=== PATIENT | male | born 1955 | race Caucasian/White ===

== ENCOUNTER 2022-02-14 12:43 | Emergency (ER) | payer MEDICARE ==
[2022-02-14 12:51] VITALS: TEMP 98.7
[2022-02-14] MEDS ORDERED: NATURE'S BLEND100 M2 PO (13:26)
[2022-02-14] MEDS ORDERED: FOLIC ACID 11 MG/TA1 PO (13:27)
[2022-02-14] MEDS ORDERED: CELEXA 20MG20 MG/TAB PO (13:27)
[2022-02-14] MEDS ORDERED: FLOMAX 0.40.4 MG/CAP PO (13:27)
[2022-02-14] MEDS ORDERED: PRILOSEC 20MG20 MG PO (13:27)
[2022-02-14 13:38] LABS: BASO # 0.1 K/mm3 (0.0-0.2); BASO % 1.3 % (0.0-2.0); EOS # 0.1 K/mm3 (0.0-0.7); EOS % 1.8 % (0.0-4.0); GRAN # 2.2 K/mm3 (1.4-6.5); GRAN % 57.8 % (42.2-75.2); HEMOGLOBIN 10.6 g/dl (13.5-18.0); LYMPH # 1.1 K/mm3 (1.2-3.4); LYMPH % 28.4 % (20.0-51.0); MEAN CELL VOLUME 99 fl (80.0-100.0); MEAN CORPUSCULAR HEMOGLOBIN 36 pg (27-31); MEAN CORPUSCULAR HGB CONC 36 g/dl (33.0-37.0); MEAN PLATELET VOLUME 9.8 fl (7.4-10.4); MONO # 0.4 K/mm3 (0.1-0.6); MONO % 10.4 % (1.7-9.3); PLATELET COUNT 105 K/mm3 (130-400); RED BLOOD COUNT 2.98 M/mm3 (4.20-5.60); REDCELL DISTRIBUTION WIDTH-CV 15.8 % (11.5-14.5)
[2022-02-14 13:39] LABS: HEMATOCRIT 29.5 % (42.0-52.0)
[2022-02-14 13:52] LABS: ALANINE AMINOTRANSFERASE 23 U/L (0-55); ALBUMIN 2.7 gm/dL (3.4-4.8); ALKALINE PHOSPHATASE 72 U/L (40-150); ANION GAP 11 mmol/L (7-16); AST,SGOT 51 U/L (5-34); BILIRUBIN,TOTAL 8.5 mg/dL (0.2-1.2); BLOOD UREA NITROGEN 6 mg/dL (8-26); CALCIUM 8.5 mg/dL (8.4-10.2); CARBON DIOXIDE 21 mmol/L (23-31); CHLORIDE 102 mmol/L (98-107); CREATININE, serum 0.58 mg/dL (0.72-1.25); GLUCOSE 97 mg/dL (70-99); LIPASE 31 U/L (8-78); POTASSIUM 3.8 mmol/L (3.5-4.5); SODIUM 134 mmol/L (136-145); TOTAL PROTEIN 6.4 gm/dL (6.2-8.1)
[2022-02-14 13:54] LABS: ALCOHOL(ethanol),MEDICAL < 10 mg/dL (0-10)
[2022-02-14 14:01] LABS: TROPONIN-I < 0.010 ng/mL (0.00-0.033)
[2022-02-14 15:03] LABS: COLLECTION METHOD CLEAN CATCH
[2022-02-14 15:23] LABS: MUCOUS Present (NOT PRESENT); PH 5 (5-8); SQUAMOUS EPITHELIAL 0-2 /hpf (0-10); URINE APPEARANCE Hazy (CLEAR/HAZY); URINE BACTERIA None Seen /hpf (NONE SEEN); URINE BILIRUBIN Negative (NEGATIVE); URINE BLOOD Negative (NEGATIVE); URINE CALCIUM OXALATE CRYSTAL Present (NOT PRESENT); URINE COLOR Amber (YELLOW); URINE GLUCOSE 1+ (NEGATIVE); URINE KETONE 1+ (NEGATIVE); URINE LEUKOCYTE ESTERASE Negative (NEGATIVE); URINE NITRATE Negative (NEGATIVE); URINE PROTEIN(semi-quant) 1+ (NEGATIVE); URINE RBC >50 /hpf (0-2); URINE UROBILINOGEN >=4.0 (NEGATIVE)
[2022-02-14 17:00] VITALS: BP 97/73; PULSE 74
== END 2022-02-14 17:00 | disposition home or self-care (01) ==
LOC: COL.ER 12:43
PROVIDERS: Nurse Practitioner Family
DX: R18.8 Other ascites (principal); D64.9 Anemia, unspecified; K74.60 Unspecified cirrhosis of liver; D72.819 Decreased white blood cell count, unspecified; Z20.822 Contact with and (suspected) exposure to COVID-19; Z87.891 Personal history of nicotine dependence; Z28.310 Unvaccinated for COVID-19
CPT/HCPCS: Q9967

== ENCOUNTER 2022-02-21 12:50 | Outpatient (CLI) | payer MEDICARE ==
[~2022-02-21] VITALS: Ht 180.3 cm; Wt 125.6 kg
[~2022-02-21 12:50] MED LIST: CELEXA 20MG20 MG/TAB PO; FLOMAX 0.40.4 MG/CAP PO; FOLIC ACID 11 MG/TA1 PO; NATURE'S BLEND100 M2 PO; PRILOSEC 20MG20 MG PO
[2022-02-21 13:22] VITALS: BP 131/82; PULSE 72; TEMP 97.8
[2022-02-21 15:50] VITALS: BP 92/60; PULSE 64
--- NOTE | 2022-02-21 17:03 | NUR ---
rEPORT TO Sultana Red.
[2022-02-21 17:50] VITALS: BP 93/58; PULSE 66
== END 2022-02-22 13:30 ==
LOC: COL.RAD 12:50
DX: K70.31 Alcoholic cirrhosis of liver with ascites (principal)
CPT/HCPCS: P9047

== ENCOUNTER → 2022-03-30 | Outpatient (CLI) | payer MEDICARE ==
[~2022-03-30] VITALS: Ht 180.3 cm; Wt 113.6 kg
[~2022-03-30] MED LIST changes: +ALDACTONE 100M100 MG PO; +CELEXA40 MG; +LASIX 40MG TABL40 MG PO; +PRILOSEC 20MG20 MG; +PROTONIX 40MG T40 MG PO
[2022-03-30 13:04] VITALS: BP 103/68; PULSE 69; TEMP 98.2
[2022-03-30 14:40] VITALS: BP 97/64; PULSE 76
== END ==
LOC: COL.RAD 12:43
DX: K70.11 Alcoholic hepatitis with ascites (principal); K70.31 Alcoholic cirrhosis of liver with ascites
CPT/HCPCS: 19804

== ENCOUNTER 2022-04-07 10:55 | Day surgery (SDC) | payer MEDICARE ==
[~2022-04-07] VITALS: Ht 180.3 cm; Wt 103.2 kg
[~2022-04-07 10:55] MED LIST changes: -ALDACTONE 100M100 MG PO; -CELEXA40 MG; -LASIX 40MG TABL40 MG PO; -PRILOSEC 20MG20 MG; -PROTONIX 40MG T40 MG PO
[2022-04-07] MEDS ORDERED: PRILOSEC 20MG20 MG (12:18)
[2022-04-07] MEDS ORDERED: FLOMAX 0.40.4 MG/CAP PO (12:19)
[2022-04-07] MEDS ORDERED: PROTONIX 40MG T40 MG PO (12:20)
[2022-04-07] MEDS ORDERED: CELEXA40 MG (12:21)
[2022-04-07 13:50] VITALS: BP 123/77; PULSE 73; TEMP 97.4
--- NOTE | 2022-04-07 13:50 | NUR ---
PATIENT ARRIVES TO ROOM 9 VIA CART. HE IS ALERT AND ORIENTED. THE DOCTOR ORDERED A SOFT DIET SO HE REQUESTED WATER AND APPLESAUCE. FRIEND AT BEDSIDE. VITAL SIGNS WNL. WILL CONTINUE TO MONITOR.
[2022-04-07 14:05] VITALS: BP 120/75; PULSE 72
--- NOTE | 2022-04-07 14:05 | NUR ---
PATIENT IS DOING WELL, NO NAUSEA REPORTED AFTER DRINKING/EATING. VITAL SIGNS WNL. WILL CONTINUE TO MONITOR. WAITING FOR DOCTOR TO SPEAK WITH PATIENT.
[2022-04-07 14:20] VITALS: BP 117/80; PULSE 74
--- NOTE | 2022-04-07 14:20 | NUR ---
PATIENT IS READY FOR DISCHARGE. INSTRUCTIONS REVIEWED WITH HIM AND HIS FRIEND. HE IS TO FOLLOW UP WITH IN 4 WEEKS. LAST SET OF VITALS WNL. WILL DISCHARGE ONCE HE IS DRESSED.
[2022-04-07 16:43] VITALS: BP 103/68; PULSE 72; TEMP 97.7
== END 2022-04-07 14:26 | disposition home or self-care (01) ==
LOC: SDCO 10:55
DX: I85.10 Secondary esophageal varices without bleeding (principal); K70.31 Alcoholic cirrhosis of liver with ascites; K29.30 Chronic superficial gastritis without bleeding; Z87.891 Personal history of nicotine dependence
CPT/HCPCS: J2704; J7030

== ENCOUNTER 2022-04-25 07:08 | Outpatient (CLI) | payer MEDICARE ==
[~2022-04-25] VITALS: Ht 180.3 cm; Wt 114.9 kg
[~2022-04-25 07:08] MED LIST changes: +CELEXA40 MG; +PRILOSEC 20MG20 MG; +PROTONIX 40MG T40 MG PO
[2022-04-25] MEDS ORDERED: ALDACTONE 100M100 MG PO (07:30)
[2022-04-25] MEDS ORDERED: LASIX 40MG TABL40 MG PO (07:30)
[2022-04-25 07:32] VITALS: BP 117/73; PULSE 75; TEMP 98
[2022-04-25 08:03] LABS: CALCIUM 8.7 mg/dL (8.4-10.2); CREATININE, serum 0.75 mg/dL (0.72-1.25); POTASSIUM 4.5 mmol/L (3.5-4.5)
[2022-04-25 09:50] VITALS: BP 85/58; PULSE 75
[2022-04-25 11:00] VITALS: BP 100/69; PULSE 77
[2022-04-25 12:00] VITALS: BP 90/60; PULSE 70
[2022-04-25 13:00] VITALS: BP 98/50; PULSE 75
== END 2022-04-25 13:15 | disposition home or self-care (01) ==
LOC: COL.RAD 07:08
PROVIDERS: Student in an Organized Health Care Education/Training Program
DX: K70.31 Alcoholic cirrhosis of liver with ascites (principal)
CPT/HCPCS: P9047

== ENCOUNTER 2022-05-02 14:41 | Emergency (ER) | payer MEDICARE ==
[~2022-05-02] VITALS: Ht 180.3 cm; Wt 100.5 kg
[~2022-05-02 14:41] MED LIST changes: +ALDACTONE 100M100 MG PO; +LASIX 40MG TABL40 MG PO
[2022-05-02 14:47] VITALS: TEMP 98.5
[2022-05-02] MEDS ORDERED: ENULOSE10 GM/151 PO (15:03)
[2022-05-02 15:31] LABS: BASO # 0.1 K/mm3 (0.0-0.2); BASO % 1.7 % (0.0-2.0); EOS # 0.2 K/mm3 (0.0-0.7); EOS % 3.8 % (0.0-4.0); GRAN # 3.1 K/mm3 (1.4-6.5); GRAN % 59.3 % (42.2-75.2); HEMATOCRIT 31.2 % (42.0-52.0); HEMOGLOBIN 11.5 g/dl (13.5-18.0); LYMPH # 1.2 K/mm3 (1.2-3.4); LYMPH % 23.5 % (20.0-51.0); MEAN CELL VOLUME 105 fl (80.0-100.0); MEAN CORPUSCULAR HEMOGLOBIN 39 pg (27-31); MEAN CORPUSCULAR HGB CONC 37 g/dl (33.0-37.0); MEAN PLATELET VOLUME 8.8 fl (7.4-10.4); MONO # 0.6 K/mm3 (0.1-0.6); MONO % 11.3 % (1.7-9.3); PLATELET COUNT 113 K/mm3 (130-400); RED BLOOD COUNT 2.98 M/mm3 (4.20-5.60); REDCELL DISTRIBUTION WIDTH-CV 14.2 % (11.5-14.5)
[2022-05-02 15:33] LABS: INR 2.1 (0.8-3.0); PROTHROMBIN TIME 23.7 SECONDS (9.7-12.8)
[2022-05-02 15:43] LABS: C-REACTIVE PROTEIN 0.84 mg/dL (0.00-0.50); CALCIUM 8.9 mg/dL (8.4-10.2); CREATININE, serum 0.86 mg/dL (0.72-1.25); POTASSIUM 4.3 mmol/L (3.5-4.5); TOTAL PROTEIN 6.7 gm/dL (6.2-8.1)
[2022-05-02 17:19] LABS: COLLECTION METHOD CLEAN CATCH
[2022-05-02 17:25] LABS: URINE APPEARANCE Clear (CLEAR/HAZY); URINE BLOOD Negative (NEGATIVE); URINE COLOR Yellow (YELLOW); URINE GLUCOSE Negative (NEGATIVE); URINE KETONE Negative (NEGATIVE); URINE NITRATE Negative (NEGATIVE); URINE PROTEIN(semi-quant) Negative (NEGATIVE); URINE UROBILINOGEN 0.2 E.U/dL (0.2-1.0)
[2022-05-02 17:26] LABS: SQUAMOUS EPITHELIAL 0-2 /hpf (0-10); URINE BACTERIA None Seen /hpf (NONE SEEN); URINE RBC 0-2 /hpf (0-2)
[2022-05-02 18:47] VITALS: BP 108/66; PULSE 74
[2022-05-08] VITALS (84 sets, daily range): O2SAT 83–100
[2022-05-09] VITALS (81 sets, daily range): O2SAT 91–97
== END 2022-05-02 19:09 | disposition home or self-care (01) ==
LOC: COL.ER 14:41
PROVIDERS: Nurse Practitioner
DX: K74.60 Unspecified cirrhosis of liver (principal); Z87.891 Personal history of nicotine dependence
CPT/HCPCS: J7030; Q9967

== ENCOUNTER 2022-05-05 10:00 | Day surgery (SDC) | payer MEDICARE ==
[~2022-05-05] VITALS: Ht 180.3 cm; Wt 106.4 kg
[~2022-05-05 10:00] MED LIST changes: +ENULOSE10 GM/151 PO
[2022-05-05 11:24] VITALS: BP 101/68; PULSE 74; TEMP 97.8
[2022-05-05 12:10] VITALS: BP 118/73; PULSE 72; TEMP 97.8
[2022-05-05 12:25] VITALS: BP 112/70; PULSE 73
[2022-05-05 12:40] VITALS: BP 116/65; PULSE 70
--- NOTE | 2022-05-05 13:05 | NUR ---
1210-PT TO BAY. AMBULATED TO CHAIR. AOX3. DENIES ANY N/V. 1250-IV DC'D. 1300-DISCHARGE EDUCATION COMPLETED. VERBALIZED UNDERSTANDING. 1305-PT OFF UNIT PER WHEELCHAIR. PT DISCHARGED TO HOME WITH KATTY PER PERSONAL VEHICLE.
[2022-05-09] VITALS (480 sets, daily range): O2SAT 85–100
[2022-05-10] VITALS (211 sets, daily range): O2SAT 83–100
[2022-05-11] VITALS (229 sets, daily range): O2SAT 75–100
== END 2022-05-05 13:05 | disposition home or self-care (01) ==
LOC: SDCO 10:00
DX: K70.30 Alcoholic cirrhosis of liver without ascites (principal); I85.10 Secondary esophageal varices without bleeding; K29.30 Chronic superficial gastritis without bleeding; Z87.891 Personal history of nicotine dependence
CPT/HCPCS: J2704; J7030

== ENCOUNTER 2022-05-07 13:34 | Inpatient (IN) | payer MEDICARE ==
[~2022-05-07] VITALS: Ht 180.3 cm; Wt 103.6 kg
[2022-05-07] VITALS (324 sets, daily range): O2SAT 81–100
[2022-05-07 14:43] LABS: MEAN CELL VOLUME 108 fl (80.0-100.0); MEAN CORPUSCULAR HEMOGLOBIN 39 pg (27-31); MEAN CORPUSCULAR HGB CONC 36 g/dl (33.0-37.0); MEAN PLATELET VOLUME 8.8 fl (7.4-10.4); PLATELET COUNT 124 K/mm3 (130-400); RED BLOOD COUNT 3.12 M/mm3 (4.20-5.60); REDCELL DISTRIBUTION WIDTH-CV 14.7 % (11.5-14.5)
[2022-05-07 14:48] LABS: HEMATOCRIT 33.6 % (42.0-52.0)
[2022-05-07 14:50] LABS: INR 2.3 (0.8-3.0); PROTHROMBIN TIME 26.4 SECONDS (9.7-12.8)
[2022-05-07 15:01] LABS: ALBUMIN 2.7 gm/dL (3.4-4.8); BILIRUBIN,TOTAL 12.1 mg/dL (0.2-1.2); C-REACTIVE PROTEIN 1.83 mg/dL (0.00-0.50); CREATININE, serum 1.34 mg/dL (0.72-1.25); POTASSIUM 5.6 mmol/L (3.5-4.5); TOTAL PROTEIN 6.3 gm/dL (6.2-8.1)
[2022-05-07 15:02] LABS: LACTIC ACID 7.1 mmol/L (0.5-2.0)
[2022-05-07 16:05] LABS: BAND 26 % (0-10); LYMPHOCYTE 16 % (20.0-51.0); METAMYELOCYTE 6 % (0-0); NEUTROPHILS 47 % (42.0-75.2); PLATELET ESTIMATE NORMAL (NORMAL)
[2022-05-07 16:07] LABS: SCHISTOCYTES 1+; TEAR DROP CELLS 2+
--- NOTE | 2022-05-07 17:51 | NUR ---
PT ARRIVES TO ICU6 FROM ED. PT HAS MADE DECISION TO BE DNR; DR. WARREN AWARE. PT HAS NO COMPLAINTS OF PAIN OR DISCOMFORT. CALL LIGHT IN REACH.
[2022-05-07 18:21] LABS: COLLECTION METHOD CLEAN CATCH
[2022-05-07 18:36] LABS: MUCOUS Present (NOT PRESENT); SQUAMOUS EPITHELIAL 0-2 /hpf (0-10); URINE BACTERIA None Seen /hpf (NONE SEEN)
[2022-05-07 18:37] LABS: URINE APPEARANCE Turbid (CLEAR/HAZY); URINE BLOOD TRACE-INTACT (NEGATIVE); URINE COLOR Red (YELLOW); URINE GLUCOSE Negative (NEGATIVE); URINE KETONE 1+ (NEGATIVE); URINE NITRATE Positive (NEGATIVE); URINE PROTEIN(semi-quant) 1+ (NEGATIVE)
[2022-05-08] VITALS (929 sets, daily range): BP systolic 70–130; BP diastolic 55–78; PULSE 81–94; TEMP 97.2–98.4; O2SAT 65–100
[2022-05-08 00:53] LABS: CALCIUM 7.9 mg/dL (8.4-10.2); CREATININE, serum 1.22 mg/dL (0.72-1.25); MAGNESIUM 1.4 mg/dL (1.6-2.6); POTASSIUM 4.4 mmol/L (3.5-4.5)
[2022-05-08 05:12] LABS: MEAN CELL VOLUME 106 fl (80.0-100.0); MEAN CORPUSCULAR HGB CONC 37 g/dl (33.0-37.0); MEAN PLATELET VOLUME 9.2 fl (7.4-10.4); PLATELET COUNT 91 K/mm3 (130-400); RED BLOOD COUNT 2.23 M/mm3 (4.20-5.60); REDCELL DISTRIBUTION WIDTH-CV 14.5 % (11.5-14.5)
[2022-05-08 05:15] LABS: HEMATOCRIT 23.6 % (42.0-52.0); HEMOGLOBIN 8.8 g/dl (13.5-18.0); MEAN CORPUSCULAR HEMOGLOBIN 39 pg (27-31)
[2022-05-08 05:29] LABS: ALBUMIN 2.4 gm/dL (3.4-4.8); CALCIUM 7.9 mg/dL (8.4-10.2); CREATININE, serum 1.25 mg/dL (0.72-1.25); POTASSIUM 4.3 mmol/L (3.5-4.5)
[2022-05-08 05:30] LABS: INR 3.2 (0.8-3.0); PROTHROMBIN TIME 37.5 SECONDS (9.7-12.8)
[2022-05-08 05:58] LABS: BAND 25 % (0-10); LYMPHOCYTE 6 % (20.0-51.0); NEUTROPHILS 68 % (42.0-75.2); PLATELET ESTIMATE DECREASED (NORMAL)
[2022-05-08 05:59] LABS: ANISOCYTOSIS 1+
--- NOTE | 2022-05-08 07:00 | NUR ---
BEDSIDE REPORT RECEIVED FROM SHOSHANA FAULKNER. PT ALERT AND ORIENTED. COMPLAINTS OF NAUSEA THIS AM.
--- NOTE | 2022-05-08 09:51 | NUR ---
therapeutic program worker met with patient to complete intake. Patient reports that he lives at home alone in [place]. He is independent with his ADL's and utilizes a cane to assist with mobility. Patient has no home oxygen needs. PCP is Dr. Kaur and he utilizes [facility] for prescriptions with no cost difficulty. Patient reports that he does have a DPOA-HC established listing his brother Fran ([phone]). He has a Citlaly listed as an additional emergency contact as Citlaly who is Frans . Phone call made to the patient's PCP office to obtain a DPOA-HC, to which they do not have one on file. PT/OT request made to hospitalist.
--- NOTE | 2022-05-08 12:20 | NUR ---
PT CONTINUES TO HAVE NAUSEA AND VOMITING DESPITE ZOFRAN BEING GIVEN THIS AM. PRN PHENERGAN GIVEN AT THIS TIME. PT MAKE AWARE THAT IT MAY MAKE HIM DROWSY.
[2022-05-08 14:17] LABS: INR 2.6 (0.8-3.0); PROTHROMBIN TIME 30.6 SECONDS (9.7-12.8)
[2022-05-08 15:41] LABS: PERITONEAL -POLYMORPHONUCLEAR 88.4 % (0-25)
--- NOTE | 2022-05-08 16:10 | NUR ---
Paracentesis performed by Dr. Kamara. 14,900ml of fluid drained. Pt tolerated well and offers no complaints. Paracentesis site clean and dry with no bleeding.
[2022-05-09] VITALS (427 sets, daily range): BP systolic 95–133; BP diastolic 50–72; PULSE 68–92; TEMP 97.5–98.9; O2SAT 92–100
[2022-05-09 05:28] LABS: MEAN CELL VOLUME 106 fl (80.0-100.0); MEAN CORPUSCULAR HGB CONC 37 g/dl (33.0-37.0); RED BLOOD COUNT 1.83 M/mm3 (4.20-5.60); REDCELL DISTRIBUTION WIDTH-CV 14.4 % (11.5-14.5)
[2022-05-09 05:30] LABS: HEMATOCRIT 19.3 % (42.0-52.0); HEMOGLOBIN 7.2 g/dl (13.5-18.0); MEAN CORPUSCULAR HEMOGLOBIN 39 pg (27-31)
[2022-05-09 05:32] LABS: PLATELET COUNT 67 K/mm3 (130-400)
[2022-05-09 05:37] LABS: INR 3.2 (0.8-3.0); PROTHROMBIN TIME 36.6 SECONDS (9.7-12.8)
[2022-05-09 05:49] LABS: ALBUMIN 3.1 gm/dL (3.4-4.8); BILIRUBIN,TOTAL 7.2 mg/dL (0.2-1.2); CALCIUM 8.5 mg/dL (8.4-10.2); CREATININE, serum 0.82 mg/dL (0.72-1.25); POTASSIUM 3.8 mmol/L (3.5-4.5); TOTAL PROTEIN 5.1 gm/dL (6.2-8.1)
--- NOTE | 2022-05-09 07:10 | NUR ---
PT WAS MOVED TO RECLINER NEEDING MINIMAL STANBY ASSISTANCE. PT STATED HE DID FEEL " A LITTLE DIZZY", BUT HAD A STRONG GAIT TO THE CHAIR.
--- NOTE | 2022-05-09 08:03 | NUR ---
DR. URIAS BEDSIDE. DR. URIAS DISCUSSED THE POSSIBLE NEED FOR A BLOOD TRANSFUSION IF THE PT H&H CONTINUE TO FALL, BUT THE DECREASE IN HGB MAY BE DUE TO DEHYDRATION, AND THE ADMINISTRATION OF FLUIDS. PT DENIES DIARRHEA AND VOMITIN. PER PHYSICIAN, LONG PT MAINTAINS A GOOD BLOOD PRESSURE HE IS ABLE TO BE MOVED TO THE MEDICAL FLOOR.
[2022-05-09 08:23] LABS: BAND 20 % (0-10); LYMPHOCYTE 6 % (20.0-51.0); NEUTROPHILS 71 % (42.0-75.2); PLATELET ESTIMATE DECREASED (NORMAL); SCHISTOCYTES 2+
--- NOTE | 2022-05-09 10:16 | NUR ---
Initial visit; Patient using phone though thanked for stopping by. spoke with Boris's physician who said he is doing well and will probably go to Medical soon.
[2022-05-09 19:47] LABS: HEMATOCRIT 20.5 % (42.0-52.0); HEMOGLOBIN 7.6 g/dl (13.5-18.0)
[2022-05-10] VITALS (154 sets, daily range): BP systolic 78–126; BP diastolic 50–82; PULSE 57–67; TEMP 98–98.7; O2SAT 87–100
[2022-05-10 05:43] LABS: MEAN CELL VOLUME 105 fl (80.0-100.0); MEAN CORPUSCULAR HGB CONC 37 g/dl (33.0-37.0); MEAN PLATELET VOLUME 9.9 fl (7.4-10.4); PLATELET COUNT 58 K/mm3 (130-400); RED BLOOD COUNT 1.85 M/mm3 (4.20-5.60); REDCELL DISTRIBUTION WIDTH-CV 14.4 % (11.5-14.5)
[2022-05-10 05:49] LABS: HEMATOCRIT 19.4 % (42.0-52.0); HEMOGLOBIN 7.1 g/dl (13.5-18.0); MEAN CORPUSCULAR HEMOGLOBIN 38 pg (27-31)
[2022-05-10 05:51] LABS: INR 2.3 (0.8-3.0); PROTHROMBIN TIME 26.3 SECONDS (9.7-12.8)
[2022-05-10 05:57] LABS: ALBUMIN 2.5 gm/dL (3.4-4.8); BILIRUBIN,TOTAL 5.5 mg/dL (0.2-1.2); CALCIUM 8.4 mg/dL (8.4-10.2); CREATININE, serum 1.15 mg/dL (0.72-1.25); POTASSIUM 4.5 mmol/L (3.5-4.5); TOTAL PROTEIN 4.6 gm/dL (6.2-8.1)
[2022-05-10 06:31] LABS: BAND 11 % (0-10); LYMPHOCYTE 4 % (20.0-51.0); NEUTROPHILS 83 % (42.0-75.2)
[2022-05-10 06:32] LABS: PLATELET ESTIMATE DECREASED (NORMAL)
--- NOTE | 2022-05-10 07:57 | NUR ---
REPORT RECEIVED FROM SHOSHANA FAULKNER; PATIENT CURRENTLY RESTING IN BED; HEART RATE IS SLIGHTLY BRADYCARDIC AND IN THE HIGH 50S, BLOOD PRESSURE IS A LITTLE SOFT WITH SYSTOLIC IN THE 100S. PATIENT IS ON ROOM AIR AND SATTING IN THE HIGH 90S. NO FLUIDS/MEDS ARE CURRENTLY INFUSING INTO THE PATIENTS LEFT UPPER ARM PICC.
--- NOTE | 2022-05-10 10:38 | NUR ---
Follow-up visit; Patient and Engineering Project Manager spoke of his health improvement and his home. Patient very quiet and personable. Engineering Project Manager wished him well and offered God's blessings.
--- NOTE | 2022-05-10 22:50 | NUR ---
CALL TO DAYRON GLASS APRN FOR PT'S LOW BP. CHECKED ON BILAT ARMS AND MANUALLY, ALL WITH SBP IN THE 70'S. ORDER RECEIVED FOR ALBUMIN. PT ASYMTOMATIC, AAOX3, NO COMPLAINTS. WILL CONTINUE TO MONITOR.
[2022-05-11] VITALS (521 sets, daily range): BP systolic 79–127; BP diastolic 55–75; PULSE 60–75; TEMP 97.4–98.8; O2SAT 50–100
[2022-05-11 02:59] LABS: BASO % 0.2 % (0.0-2.0); GRAN # 5.5 K/mm3 (1.4-6.5); GRAN % 83.7 % (42.2-75.2); LYMPH # 0.4 K/mm3 (1.2-3.4); LYMPH % 6.6 % (20.0-51.0); MEAN CELL VOLUME 105 fl (80.0-100.0); MEAN CORPUSCULAR HGB CONC 38 g/dl (33.0-37.0); MEAN PLATELET VOLUME 10.2 fl (7.4-10.4); MONO # 0.6 K/mm3 (0.1-0.6); MONO % 8.6 % (1.7-9.3); PLATELET COUNT 55 K/mm3 (130-400); RED BLOOD COUNT 1.91 M/mm3 (4.20-5.60); REDCELL DISTRIBUTION WIDTH-CV 14.2 % (11.5-14.5)
[2022-05-11 03:00] LABS: HEMOGLOBIN 7.5 g/dl (13.5-18.0); MEAN CORPUSCULAR HEMOGLOBIN 39 pg (27-31)
[2022-05-11 03:13] LABS: CALCIUM 8.3 mg/dL (8.4-10.2); CREATININE, serum 1.03 mg/dL (0.72-1.25); POTASSIUM 4.3 mmol/L (3.5-4.5)
--- NOTE | 2022-05-11 05:04 | NUR ---
CALL TO DAYRON GLASS APRN TO UPDATE AFTER PT'S 500ML BOLUS COMPLETE. SBP THROUGHOUT BOLUS IN THE 80'S, MAP CONSISTENTLY OVER 65. STATES TO CONTINUE TO MONITOR WITH GOAL OF MAP >65. WILL ADDRESS FURTHER IF MAP DROPS.
--- NOTE | 2022-05-11 07:43 | NUR ---
REPORT RECEIVED FROM SHOSHANA ARGUELLO; PATIENT CURRENTLY RESTING IN BED, VITALS SIGNS ARE ALL WITHIN NORMAL LIMITS THIS MORNING. PATIENT HAS NO FLUIDS/MEDS RUNNING THROUGH HIS LEFT UPPER ARM PICC.
--- NOTE | 2022-05-11 14:30 | NUR ---
Met with patient at bedside. Discussed concerns of limited treatment options. Patient states he has a living will and DPOA established and he has discussed with them his wishes if he is unable to verbalize them himself. He shows interest in home health services and states that he isn't ready for hospice yet. Patient also admits to struggling to read and remember some things. Patient is able to verbalize plan for paracentesis tomorrow but is unsure about any plan from there. Right now his concern is for a BM and requests an additional stool softener and pre/probiotics. Offered my contact information and to meet again tomorrow. Patient agreed. Updated care team as well.
--- NOTE | 2022-05-11 19:00 | NUR ---
PT ASSESSMENT COMPLETED AT THIS TIME. VSS. PT IS ALERT AND ORIENTED. PT HAS NO CURRENT MEDICATIONS RUNNING VIA IV. CALL LIGHT WITHIN REACH OF THE PATIENT.
[2022-05-12] VITALS (8 sets, daily range): BP systolic 81–121; BP diastolic 59–64; PULSE 71–86; TEMP 98.7–99.4; O2SAT 91–97
--- NOTE | 2022-05-12 07:26 | NUR ---
BEDSIDE REPORT RECEIVED FROM SHOSHANA GUPTA. PT IS RESTING IN BED, DENIES NEEDS AT THIS TIME. VSS. CALL LIGHT IN REACH.
[2022-05-12 07:35] LABS: MEAN CELL VOLUME 108 fl (80.0-100.0); MEAN CORPUSCULAR HGB CONC 37 g/dl (33.0-37.0); MEAN PLATELET VOLUME 10.2 fl (7.4-10.4); PLATELET COUNT 68 K/mm3 (130-400); RED BLOOD COUNT 2.34 M/mm3 (4.20-5.60); REDCELL DISTRIBUTION WIDTH-CV 14.6 % (11.5-14.5)
[2022-05-12 07:37] LABS: INR 2.4 (0.8-3.0); PROTHROMBIN TIME 27.4 SECONDS (9.7-12.8)
[2022-05-12 07:38] LABS: HEMATOCRIT 25.2 % (42.0-52.0); HEMOGLOBIN 9.2 g/dl (13.5-18.0); MEAN CORPUSCULAR HEMOGLOBIN 39 pg (27-31)
[2022-05-12 07:49] LABS: ALBUMIN 2.5 gm/dL (3.4-4.8); BILIRUBIN,TOTAL 4.8 mg/dL (0.2-1.2); CALCIUM 8.3 mg/dL (8.4-10.2); CREATININE, serum 0.73 mg/dL (0.72-1.25); MAGNESIUM 1.7 mg/dL (1.6-2.6); POTASSIUM 4.3 mmol/L (3.5-4.5)
[2022-05-12 08:30] LABS: BAND 3 % (0-10); EOSINOPHIL 5 % (0-4); LYMPHOCYTE 14 % (20.0-51.0); METAMYELOCYTE 2 % (0-0); NEUTROPHILS 69 % (42.0-75.2); OVALOCYTES 1+; PLATELET ESTIMATE DECREASED (NORMAL); POIKILOCYTOSIS 1+; TEAR DROP CELLS 1+
[2022-05-12] MEDS ORDERED: ZOFRAN ODT4 MG PO (10:23)
[2022-05-12] MEDS ORDERED: OMNICEF 300MG300 MG PO (10:24)
--- NOTE | 2022-05-12 16:52 | NUR ---
PT DISCHARGED TO HOME W/ AT 1615. VSS AT TIME OF DISCHARGE. PICC LINE REMOVED BY AIV NURSE. DRESSINGS TO PICC SITE, RIJ SITE, AND PARACENTESIS SITE ALL CDI, NO DRAINAGE NOTED. PT INSTRUCTED TO KEEP DRESSINGS IN PLACE FOR 24 HOURS AND EDUCATED ON S/SX OF INFECTION OR COMPLICATIONS TO MONITOR FOR. PRINT OUT GIVEN IN D/C PACKET. PT GIVEN FOLLOW UP APPTS W/ DR DOHERTY (05/16/22 AT 1350) AND [facility] W/ [facility] (05/16/22 AT 1540). MED LIST REVIEWED W/ PT AND , INSTRUCTED TO SPIKE MAKER CEFDINIR AND ZOFRAN PRESCRIPTIONS AND TO TAKE DIRECTED AND TO STOP TAKING LASIX AND SPIRONOLACTONE. PT AND VERBALIZED UNDERSTANDING OF ALL INSTRUCTIONS. ALL PT BELONGINGS SENT HOME W/ PT. PT TAKEN TO HOSPITAL EXIT VIA THEN TRANSFERRED TO PRIVATE VEHICLE.
== END 2022-05-12 16:15 | disposition home or self-care (01) | DRG 432 ==
LOC: COL.ER 13:34 → ICU 17:16
PROVIDERS: Internal Medicine Pulmonary Disease; Nurse Practitioner; Student in an Organized Health Care Education/Training Program; ADMIT Internal Medicine
PROC: 05H533Z Insertion of Infusion Device into Right Subclavian Vein, Percutaneous Approach (ICD-10-PCS; 2022-05-07)
PROC: 0W9G3ZX Drainage of Peritoneal Cavity, Percutaneous Approach, Diagnostic (ICD-10-PCS; principal; 2022-05-08)
PROC: 02HV33Z Insertion of Infusion Device into Superior Vena Cava, Percutaneous Approach (ICD-10-PCS; 2022-05-08)
PROC: 30243P1 Transfusion of Nonautologous Frozen Red Cells into Central Vein, Percutaneous Approach (ICD-10-PCS; 2022-05-08)
PROC: 0W9G3ZZ Drainage of Peritoneal Cavity, Percutaneous Approach (ICD-10-PCS; 2022-05-12)
DX: K70.31 Alcoholic cirrhosis of liver with ascites (principal); A41.9 Sepsis, unspecified organism; K65.2 Spontaneous bacterial peritonitis; R65.21 Severe sepsis with septic shock; D68.9 Coagulation defect, unspecified; N17.9 Acute kidney failure, unspecified; Z66 Do not resuscitate; Z51.5 Encounter for palliative care; E87.2 Acidosis; E87.1 Hypo-osmolality and hyponatremia; D61.818 Other pancytopenia; I95.9 Hypotension, unspecified; E86.1 Hypovolemia; E80.6 Other disorders of bilirubin metabolism; D69.6 Thrombocytopenia, unspecified; D64.9 Anemia, unspecified; D72.819 Decreased white blood cell count, unspecified; E87.5 Hyperkalemia; E87.70 Fluid overload, unspecified; R16.1 Splenomegaly, not elsewhere classified; E16.2 Hypoglycemia, unspecified; B96.29 Other Escherichia coli [E. coli] as the cause of diseases classified elsewhere; I10 Essential (primary) hypertension; E87.6 Hypokalemia; F10.10 Alcohol abuse, uncomplicated; Z87.891 Personal history of nicotine dependence; Z91.048 Other nonmedicinal substance allergy status
CPT/HCPCS: C1713; C1751; C9113; J0696; J1720; J1815; J2405; J2543; J2550; J3430; J3475; J7030; J7042; J7060; P9047

== ENCOUNTER → 2022-05-22 | Outpatient (CLI) | payer MEDICARE ==
[~2022-05-22] VITALS: Ht 180.3 cm; Wt 104.3 kg
[~2022-05-22] MED LIST changes: +MULTI VITAMINS1 TAB PO; +OMNICEF 300MG300 MG PO; +ZOFRAN ODT4 MG PO
[2022-05-22 13:37] VITALS: BP 96/65; PULSE 84; TEMP 98.1
[2022-05-22 15:47] VITALS: BP 110/75; PULSE 80
[2022-05-22 17:47] VITALS: BP 102/55; PULSE 71
== END ==
LOC: COL.RAD 13:08
DX: K70.31 Alcoholic cirrhosis of liver with ascites (principal)
CPT/HCPCS: P9047

== ENCOUNTER 2022-05-30 11:34 | Outpatient (CLI) | payer MEDICARE ==
[~2022-05-30] VITALS: Ht 180.3 cm; Wt 97.9 kg
[~2022-05-30 11:34] MED LIST changes: -MULTI VITAMINS1 TAB PO
[2022-05-30] MEDS ORDERED: MULTI VITAMINS1 TAB PO (11:54)
[2022-05-30 12:00] VITALS: BP 107/68; PULSE 83; TEMP 98.3
[2022-05-30 15:05] VITALS: BP 90/57; PULSE 79
== END 2022-05-30 16:45 ==
LOC: COL.RAD 11:34
DX: K70.31 Alcoholic cirrhosis of liver with ascites (principal)
CPT/HCPCS: P9047

== ENCOUNTER 2022-06-06 11:41 | Outpatient (CLI) | payer MEDICARE ==
[~2022-06-06] VITALS: Ht 180.3 cm; Wt 101.0 kg
[~2022-06-06 11:41] MED LIST changes: +MULTI VITAMINS1 TAB PO
[2022-06-06 11:51] VITALS: BP 116/71; PULSE 88; TEMP 97.9
[2022-06-06 13:38] VITALS: BP 99/61; PULSE 88
== END 2022-06-06 18:54 | disposition home or self-care (01) ==
LOC: COL.RAD 11:41
DX: K70.31 Alcoholic cirrhosis of liver with ascites (principal)
CPT/HCPCS: P9047

== ENCOUNTER 2022-07-04 09:00 | Outpatient (CLI) | payer MEDICARE ==
[~2022-07-04] VITALS: Ht 180.3 cm; Wt 95.7 kg
[2022-07-04 09:19] VITALS: BP 113/74; PULSE 89; TEMP 98.2
[2022-07-04 11:31] VITALS: BP 93/61; PULSE 80
[2022-07-04 13:25] VITALS: BP 92/60; PULSE 80
--- NOTE | 2022-07-04 13:30 | NUR ---
Pt assisted out to friend's car for ride home with belongings. IV site wrapped with coban. Pt alert, free of complaints at time of discharge.
== END 2022-07-04 13:30 | disposition home or self-care (01) ==
LOC: COL.RAD 09:00
DX: K70.31 Alcoholic cirrhosis of liver with ascites (principal)
CPT/HCPCS: P9047

== ENCOUNTER 2022-07-14 10:59 | Day surgery (SDC) | payer MEDICARE ==
[~2022-07-14] VITALS: Ht 180.3 cm; Wt 86.4 kg
[2022-07-14 13:25] VITALS: BP 101/58; PULSE 76; TEMP 97.4
[2022-07-14 13:40] VITALS: BP 101/58; PULSE 76
[2022-07-14 13:55] VITALS: BP 98/48; PULSE 76
--- NOTE | 2022-07-14 14:00 | NUR ---
1325 RETURNS TO ROOM 8. AMBULATES FROM CART TO RECLINER WITH STANDBY ASSIST. ALERT. FEET ELEVATED.MONITORS ON, VITAL SIGNS OBTAINED. DENIES NAUSEA,ABD PAIN OR DYSPHAGIA. FRIEND IN ROOM. CALL LIGHT AT SIDE. 1340 TOLERATES PO APPLE JUICE WITHOUT NAUSEA. SWALLOWS WITHOUT DIFFICULTY. 1345 DR HERE TO VISIT WITH PATIENT. 1355 DISCHARGE INSTRUCTIONS REVIEWED. 1410 DRESSES SELF
[2022-07-14 14:05] VITALS: BP 93/59; PULSE 72
[2022-07-14 16:25] VITALS: BP 85/61; PULSE 83; TEMP 97.3
== END 2022-07-14 14:15 | disposition home or self-care (01) ==
LOC: SDCO 10:59
DX: Z12.11 Encounter for screening for malignant neoplasm of colon (principal); K70.31 Alcoholic cirrhosis of liver with ascites; I85.10 Secondary esophageal varices without bleeding; F10.11 Alcohol abuse, in remission; E87.1 Hypo-osmolality and hyponatremia; L29.9 Pruritus, unspecified; K29.30 Chronic superficial gastritis without bleeding; K76.6 Portal hypertension; Z87.891 Personal history of nicotine dependence
CPT/HCPCS: 43235; G0121; J2704; J7120

== ENCOUNTER 2022-07-18 09:19 | Outpatient (CLI) | payer MEDICARE ==
[~2022-07-18] VITALS: Ht 180.3 cm; Wt 95.3 kg
[2022-07-18 10:00] VITALS: BP 104/65; PULSE 83; TEMP 98.2
[2022-07-18 11:43] VITALS: BP 88/57; PULSE 74
== END 2022-07-18 13:18 ==
LOC: COL.RAD 09:19
DX: K70.31 Alcoholic cirrhosis of liver with ascites (principal)
CPT/HCPCS: P9047

== ENCOUNTER → 2022-09-12 | Outpatient (CLI) | payer MEDICARE ==
[~2022-09-12] VITALS: Ht 180.3 cm; Wt 89.5 kg
[~2022-09-12] MED LIST changes: +ATARAX 25MG25 MG/TAB PO; +COLESTID 1GM1 G PO; +CRESTOR5 MG PO; +MACROBID 1100 MG/CAP PO; +PROCTOCREAM-HC2.5% RC; +VANTIN 200200 MG/TAB PO
[2022-09-12 11:24] VITALS: BP 113/67; PULSE 73; TEMP 97.9
[2022-09-12 12:10] VITALS: BP 92/59; PULSE 71
== END ==
LOC: COL.RAD 10:47
DX: K70.31 Alcoholic cirrhosis of liver with ascites (principal)
CPT/HCPCS: 19804

== ENCOUNTER → 2022-10-10 | Outpatient (CLI) | payer MEDICARE ==
[~2022-10-10] VITALS: Ht 180.3 cm; Wt 113.3 kg
[~2022-10-10] MED LIST changes: -MACROBID 1100 MG/CAP PO; -VANTIN 200200 MG/TAB PO
[2022-10-10 11:20] VITALS: BP 95/64; PULSE 83; TEMP 97.9
[2022-10-10 13:10] VITALS: BP 83/55; PULSE 88
[2022-10-10 14:14] VITALS: BP 74/50; PULSE 80
== END ==
LOC: COL.RAD 10:36
DX: K70.31 Alcoholic cirrhosis of liver with ascites (principal)
CPT/HCPCS: P9047

== ENCOUNTER 2022-10-23 15:45 | Emergency (ER) | payer MEDICARE ==
[~2022-10-23] VITALS: Ht 180.3 cm; Wt 86.4 kg
[2022-10-23 15:53] VITALS: TEMP 98.8
[2022-10-23 16:21] LABS: BASO # 0.1 K/mm3 (0.0-0.2); BASO % 1.4 % (0.0-2.0); EOS # 0.2 K/mm3 (0.0-0.7); EOS % 4.7 % (0.0-4.0); GRAN # 3.3 K/mm3 (1.4-6.5); GRAN % 64.9 % (42.2-75.2); LYMPH # 0.8 K/mm3 (1.2-3.4); LYMPH % 15.7 % (20.0-51.0); MEAN CELL VOLUME 95 fl (80.0-100.0); MEAN CORPUSCULAR HGB CONC 36 g/dl (33.0-37.0); MEAN PLATELET VOLUME 9.5 fl (7.4-10.4); MONO # 0.7 K/mm3 (0.1-0.6); MONO % 12.9 % (1.7-9.3); PLATELET COUNT 118 K/mm3 (130-400); RED BLOOD COUNT 2.62 M/mm3 (4.20-5.60); REDCELL DISTRIBUTION WIDTH-CV 14.3 % (11.5-14.5)
[2022-10-23 16:22] LABS: HEMATOCRIT 24.9 % (42.0-52.0); HEMOGLOBIN 8.9 g/dl (13.5-18.0); MEAN CORPUSCULAR HEMOGLOBIN 34 pg (27-31)
[2022-10-23 16:27] LABS: INR 1.8 (0.8-3.0); PROTHROMBIN TIME 20.2 SECONDS (9.7-12.8)
[2022-10-23 16:42] LABS: ALBUMIN 2.8 gm/dL (3.4-4.8); BILIRUBIN,TOTAL 2.8 mg/dL (0.2-1.2); CALCIUM 8.3 mg/dL (8.4-10.2); CREATININE, serum 1.99 mg/dL (0.72-1.25); POTASSIUM 5.3 mmol/L (3.5-4.5); TOTAL PROTEIN 5.7 gm/dL (6.2-8.1)
[2022-10-23 17:45] LABS: COLLECTION METHOD CLEAN CATCH
[2022-10-23 17:57] LABS: MUCOUS Present (NOT PRESENT); SQUAMOUS EPITHELIAL None Seen /hpf (0-10); URINE BACTERIA None Seen /hpf (NONE SEEN); URINE RBC 0-2 /hpf (0-2)
[2022-10-23 17:58] LABS: PH 5.5 (5-8); URINE APPEARANCE Hazy (CLEAR/HAZY); URINE BLOOD Negative (NEGATIVE); URINE COLOR Yellow (YELLOW); URINE GLUCOSE Negative (NEGATIVE); URINE KETONE Negative (NEGATIVE); URINE NITRATE Negative (NEGATIVE); URINE PROTEIN(semi-quant) Negative (NEGATIVE); URINE UROBILINOGEN 0.2 (NEGATIVE)
[2022-10-23 18:10] LABS: CALCIUM 8.1 mg/dL (8.4-10.2); CREATININE, serum 2.06 mg/dL (0.72-1.25); POTASSIUM 5.2 mmol/L (3.5-4.5)
[2022-10-23] MEDS ORDERED: MACROBID 1100 MG/CAP PO (18:24)
[2022-10-23 18:36] VITALS: BP 114/70; PULSE 78
== END 2022-10-23 18:55 | disposition home or self-care (01) ==
LOC: COL.ER 15:45
PROVIDERS: Physician Assistant
DX: E87.1 Hypo-osmolality and hyponatremia (principal); N39.0 Urinary tract infection, site not specified; Z87.19 Personal history of other diseases of the digestive system; Z87.891 Personal history of nicotine dependence; Z98.890 Other specified postprocedural states; Z28.310 Unvaccinated for COVID-19
CPT/HCPCS: J7030

== ENCOUNTER 2022-10-24 09:11 | Outpatient (CLI) | payer MEDICARE ==
[~2022-10-24] VITALS: Ht 180.3 cm; Wt 106.0 kg
[~2022-10-24 09:11] MED LIST changes: +MACROBID 1100 MG/CAP PO
[2022-10-24 10:58] VITALS: BP 101/63; PULSE 71; TEMP 97.9
[2022-10-24 13:15] VITALS: BP 80/57; PULSE 65
[2022-10-24 13:30] VITALS: BP 105/61; PULSE 73
[2022-10-24 14:30] VITALS: BP 79/54; PULSE 75
[2022-10-24 15:30] VITALS: BP 84/59; PULSE 73
--- NOTE | 2022-10-24 15:30 | NUR ---
PT SAT UP AND VITALS TAKEN. PT STATES HE FEELS OKAY. IV REMOVED. WHEELED DOWNSTAIR ACCOMPANIED WITH
== END 2022-10-24 15:40 | disposition home or self-care (01) ==
LOC: COL.RAD 09:11
DX: K70.31 Alcoholic cirrhosis of liver with ascites (principal)
CPT/HCPCS: P9047

== ENCOUNTER 2022-11-07 10:41 | Outpatient (CLI) | payer MEDICARE ==
[~2022-11-07] VITALS: Ht 180.3 cm; Wt 111.6 kg
[~2022-11-07 10:41] MED LIST changes: +VANTIN 200200 MG/TAB PO
[2022-11-07] MEDS ORDERED: VANTIN 200200 MG/TAB PO (11:17)
[2022-11-07 11:22] VITALS: BP 107/65; PULSE 67; TEMP 98
[2022-11-07 14:10] VITALS: BP 102/58; PULSE 81
[2022-11-08] MEDS ORDERED: ENULOSE10 GM/151 PO (18:14)
== END 2022-11-07 17:49 | disposition home or self-care (01) ==
LOC: COL.RAD 10:41
DX: K70.31 Alcoholic cirrhosis of liver with ascites (principal)
CPT/HCPCS: P9047

== ENCOUNTER 2022-11-08 13:33 | Emergency (ER) | payer MEDICARE ==
[~2022-11-08] VITALS: Ht 180.3 cm; Wt 90.9 kg
[2022-11-08 13:37] VITALS: TEMP 99.7
[2022-11-08 14:35] LABS: BASO # 0.1 K/mm3 (0.0-0.2); BASO % 1.6 % (0.0-2.0); EOS # 0.2 K/mm3 (0.0-0.7); EOS % 5.2 % (0.0-4.0); GRAN # 1.9 K/mm3 (1.4-6.5); GRAN % 60.7 % (42.2-75.2); LYMPH # 0.6 K/mm3 (1.2-3.4); LYMPH % 19.2 % (20.0-51.0); MEAN CELL VOLUME 95 fl (80.0-100.0); MEAN CORPUSCULAR HGB CONC 36 g/dl (33.0-37.0); MEAN PLATELET VOLUME 9.5 fl (7.4-10.4); MONO # 0.4 K/mm3 (0.1-0.6); PLATELET COUNT 95 K/mm3 (130-400); RED BLOOD COUNT 2.31 M/mm3 (4.20-5.60); REDCELL DISTRIBUTION WIDTH-CV 14.2 % (11.5-14.5)
[2022-11-08 14:37] LABS: HEMATOCRIT 21.9 % (42.0-52.0); HEMOGLOBIN 7.9 g/dl (13.5-18.0); INR 2.1 (0.8-3.0); MEAN CORPUSCULAR HEMOGLOBIN 34 pg (27-31); PROTHROMBIN TIME 24.8 SECONDS (9.7-12.8)
[2022-11-08 14:50] LABS: COLLECTION METHOD CLEAN CATCH
[2022-11-08 14:55] LABS: ALBUMIN 3.4 gm/dL (3.4-4.8); BILIRUBIN,TOTAL 2.7 mg/dL (0.2-1.2); CALCIUM 8.6 mg/dL (8.4-10.2); CREATININE, serum 2.85 mg/dL (0.72-1.25); POTASSIUM 5.2 mmol/L (3.5-4.5); TOTAL PROTEIN 5.3 gm/dL (6.2-8.1)
[2022-11-08 15:10] LABS: MUCOUS Present (NOT PRESENT); SQUAMOUS EPITHELIAL 0-2 /hpf (0-10); URINE BACTERIA Rare /hpf (NONE SEEN); URINE RBC 0-2 /hpf (0-2)
[2022-11-08 15:18] LABS: PH 5.5 (5-8); URINE APPEARANCE Hazy (CLEAR/HAZY); URINE BLOOD TRACE-INTACT (NEGATIVE); URINE COLOR Yellow (YELLOW); URINE GLUCOSE Negative (NEGATIVE); URINE KETONE Negative (NEGATIVE); URINE NITRATE Negative (NEGATIVE); URINE PROTEIN(semi-quant) Negative (NEGATIVE); URINE UROBILINOGEN 0.2 (NEGATIVE)
[2022-11-08] MEDS ORDERED: ENULOSE10 GM/151 PO (18:14)
[2022-11-08 20:52] VITALS: BP 80/50; PULSE 71
== END 2022-11-08 20:55 | disposition short-term general hospital (02) ==
LOC: COL.ER 13:33
PROVIDERS: Emergency Medicine
DX: E87.1 Hypo-osmolality and hyponatremia (principal); N17.9 Acute kidney failure, unspecified; K76.82 Hepatic encephalopathy; N18.6 End stage renal disease; Z20.822 Contact with and (suspected) exposure to COVID-19
CPT/HCPCS: J0696; J7120

== ENCOUNTER 2023-10-15 13:06 | Inpatient (IN) | payer MEDICARE ==
[2023-10-15] VITALS (68 sets, daily range): BP systolic 95; BP diastolic 74; PULSE 89; TEMP 98.5; O2SAT 93–99
[~2023-10-15] VITALS: Ht 182.9 cm; Wt 112.4 kg
[2023-10-15] MEDS ORDERED: LR 1,000 ML IV ONE ×2 (14:00→20:15)
[2023-10-15 14:10] LABS: INR 1.2 (0.8-3.0); PROTHROMBIN TIME 13.6 SECONDS (9.7-12.8)
[2023-10-15 14:14] LABS: BASO % 0.5 % (0.0-2.0); EOS % 0.5 % (0.0-4.0); GRAN # 3.1 K/mm3 (1.4-6.5); GRAN % 69.3 % (42.2-75.2); HEMATOCRIT 43.2 % (42.0-52.0); HEMOGLOBIN 15.3 g/dl (13.5-18.0); LYMPH # 0.8 K/mm3 (1.2-3.4); LYMPH % 17.8 % (20.0-51.0); MEAN CELL VOLUME 93 fl (80.0-100.0); MEAN CORPUSCULAR HEMOGLOBIN 33 pg (27-31); MEAN CORPUSCULAR HGB CONC 35 g/dl (33.0-37.0); MEAN PLATELET VOLUME 9.6 fl (7.4-10.4); MONO # 0.5 K/mm3 (0.1-0.6); MONO % 11.7 % (1.7-9.3); PLATELET COUNT 147 K/mm3 (130-400); RED BLOOD COUNT 4.63 M/mm3 (4.20-5.60); REDCELL DISTRIBUTION WIDTH-CV 12.7 % (11.5-14.5)
[2023-10-15] MEDS ORDERED: Ondansetron 4 MG/2 ML VIAL IV ONE (14:15)
[2023-10-15 14:23] LABS: ALBUMIN 3.8 gm/dL (3.4-4.8); BILIRUBIN,TOTAL 0.7 mg/dL (0.2-1.2); CALCIUM 9.1 mg/dL (8.4-10.2); CREATININE, serum 1.47 mg/dL (0.72-1.25); POTASSIUM 4.3 mmol/L (3.5-4.5); TOTAL PROTEIN 6.9 gm/dL (6.2-8.1)
[2023-10-15] MEDS ORDERED: Iohexol 300 - 100 ML VIAL IV ONE (15:09)
[2023-10-15] MEDS ORDERED: NS 1,000 ML IV ONE (15:30)
[2023-10-15 15:39] LABS: COLLECTION METHOD CLEAN CATCH
[2023-10-15 16:01] LABS: PH 5.5 (5.0-8.5); URINE APPEARANCE Clear (CLEAR/HAZY); URINE BLOOD 1+ (NEGATIVE); URINE COLOR Yellow (YELLOW); URINE GLUCOSE Negative (NEGATIVE); URINE KETONE 1+ (NEGATIVE); URINE NITRATE Negative (NEGATIVE); URINE PROTEIN(semi-quant) Negative (BEGATIVE); URINE UROBILINOGEN 0.2 E.U/dL (0.2-1.0)
[2023-10-15 16:05] LABS: SQUAMOUS EPITHELIAL 0-2 /hpf (0-10); URINE BACTERIA Rare /hpf (NONE SEEN)
[2023-10-15 16:06] LABS: URINE RBC None Seen /hpf (0-2)
[2023-10-15 18:42] LABS: CLOSTRIDIUM DIFF A/B NEG
[2023-10-15] MEDS ORDERED: LR 1,000 ML IV SCH (19:15)
[2023-10-15] MEDS ORDERED: Ondansetron 4 MG/2 ML VIAL IV PRN (19:15)
[2023-10-15] MEDS ORDERED: Polyethylene Glycol 3350 17 GM PDS PO PRN (19:15)
[2023-10-15] MEDS ORDERED: Acetaminophen 325 MG TAB PO PRN (19:15)
[2023-10-15] MEDS ORDERED: PROGRAF 1MG1 MG PO (19:27)
[2023-10-15] MEDS ORDERED: MYFORTIC360 MG PO (19:29)
[2023-10-15] MEDS ORDERED: PROTONIX 40MG T40 MG PO (19:30)
[2023-10-15] MEDS ORDERED: NATURAL MAGNES200 MG PO (19:35)
[2023-10-15] MEDS ORDERED: ASPIRIN E.C. 8181 MG PO (19:38)
[2023-10-15] MEDS ORDERED: MASON NATURAL2000 IU PO (19:40)
[2023-10-15] MEDS ORDERED: MIRALAX PA17 GM/Dose PO ×2 (19:41→19:42)
[2023-10-15] MEDS ORDERED: SENOKOT S 50 MG1 TAB PO (19:43)
[2023-10-15] MEDS ORDERED: LIDODERM 5% PATC1 EA TP (19:45)
[2023-10-15] MEDS ORDERED: Rosuvastatin 5 MG **** subs to Atorvastatin 10 MG PO SCH (21:47)
[2023-10-15] MEDS ORDERED: Tacrolimus 1 MG CAP PO SCH (21:48)
[2023-10-15] MEDS ORDERED: Mycophenolate DR 180 MG TAB PO SCH (21:48)
--- NOTE | 2023-10-15 22:15 | NUR ---
PATIENT ARRIVED TO ICU ON ROOM AIR VIA BED. PATIENT SYSTOLIC NOTED TO BE IN THE 90'S. UPON ARRIVAL LR BOLUS FINISHING FROM ER. PATIENT ARRIVED TO UNIT WITH GLASSES, PHONE, WALLET, COAT, PANTS, SHIRT, SOCKS, SHOES, BELT, AND HOME MEDICATIONS. PATIENT DENIED WANTING ANY BELONGINGS LOCKED WITH SECURITY.
[2023-10-16] VITALS (789 sets, daily range): BP systolic 61–145; BP diastolic 49–89; PULSE 64–90; TEMP 98.3–102; O2SAT 76–100
[2023-10-16] MEDS ORDERED: Heparin 5,000 UNITS/ML 1 ML VIAL SQ SCH
[2023-10-16] MEDS ORDERED: LR 500 ML IV ONE (05:15)
[2023-10-16 06:19] LABS: MEAN CELL VOLUME 93 fl (80.0-100.0); MEAN CORPUSCULAR HGB CONC 36 g/dl (33.0-37.0); MEAN PLATELET VOLUME 9.2 fl (7.4-10.4); RED BLOOD COUNT 3.86 M/mm3 (4.20-5.60); REDCELL DISTRIBUTION WIDTH-CV 12.7 % (11.5-14.5)
[2023-10-16 06:25] LABS: HEMATOCRIT 35.7 % (42.0-52.0); MEAN CORPUSCULAR HEMOGLOBIN 33 pg (27-31); PLATELET COUNT 116 K/mm3 (130-400)
[2023-10-16 06:28] LABS: HEMOGLOBIN 12.7 g/dl (13.5-18.0)
[2023-10-16 06:44] LABS: ALBUMIN 2.8 gm/dL (3.4-4.8); CALCIUM 8.4 mg/dL (8.4-10.2); CREATININE, serum 1.1 mg/dL (0.72-1.25); MAGNESIUM 1.5 mg/dL (1.6-2.6); PHOSPHOROUS 2.3 mg/dL (2.3-4.7); POTASSIUM 4.2 mmol/L (3.5-4.5)
[2023-10-16 06:52] LABS: BAND 27 % (0-10); LYMPHOCYTE 18 % (20.0-51.0); NEUTROPHILS 27 % (42.0-75.2)
[2023-10-16 06:53] LABS: PLATELET ESTIMATE NORMAL (NORMAL)
--- NOTE | 2023-10-16 07:58 | NUR ---
0700 REPORT RECEIVED FROM SHOSHANA BURRELL. VSS, PT ON 4L O2 PER OM. IVF AND LEVOPHED INFUSING TO PERIPHERAL IV IN L AC. PT IS ALERT AND ORIENTED, USES CALL LIGHT FOR NEEDS. 0745 PT UP TO STAND AT BEDSIDE TO USE URINAL. REPORTS "FEELING BETTER THAN YESTERDAY", DENIES SHORTNESS OF BREATH OR PAIN.
[2023-10-16] MEDS ORDERED: Cholecalciferol (Vit D3) 1000 Units TAB PO SCH (09:00)
--- NOTE | 2023-10-16 10:25 | NUR ---
workers compensation administrator noted patient is in isolation status. MIGUEL ANGEL called JOSE CK, brother Fran [phone] to discuss intake information. Fran reports his , Citlaly would have better information on this as she assists him often. MIGUEL ANGEL recieved a call from Citlaly. She provided pt lives with a friend in [place]. He sees Dr. Kaur and obtains medications from [facility] with no difficulties. He is indpendent with ADLS and uses a cane sometimes for DME. Citlaly reports they have a DPOA-HC for pt listing Fran, but they have to find this. Citlaly reports she will look for this and call MIGUEL ANGEL. PT pending, OT being ordered by SHOSHANA Crawford. Discharge Plan: tbd
[2023-10-16] MEDS ORDERED: Doxycycline Hyclate 100 MG in NS 150 ML IV SCH (10:30)
[2023-10-16] MEDS ORDERED: Magnesium Sulfate 4 GM/50 ML IV SOLN IV ONE (10:30)
[2023-10-16] MEDS ORDERED: Tacrolimus 1 MG CAP PO ONE (10:30)
[2023-10-16] MEDS ORDERED: dexAMETHasone 4 MG TAB PO SCH (10:30)
[2023-10-16] MEDS ORDERED: Magnesium Oxide 400 MG TAB PO SCH (21:00)
[2023-10-16] MEDS ORDERED: Mycophenolate DR 180 MG TAB PO SCH (21:00)
[2023-10-16] MEDS ORDERED: Tacrolimus 1 MG CAP PO SCH (21:00)
[2023-10-16] MEDS ORDERED: Atorvastatin 10 MG TAB PO SCH (21:00)
--- NOTE | 2023-10-16 21:22 | NUR ---
Received report from SHOSHANA Crawford. Pt is alert and resting in bed with the call light within reach. Pt has LR running at this time. Pt's vitals are stable at this time. Pt does not look in distress at this time. Will continue pt care.
[2023-10-17] VITALS (388 sets, daily range): BP systolic 98–158; BP diastolic 69–94; PULSE 57–64; TEMP 98.3–98.6; O2SAT 87–99
[2023-10-17 04:44] LABS: HEMOGLOBIN 12.2 g/dl (13.5-18.0); MEAN CELL VOLUME 90 fl (80.0-100.0); MEAN CORPUSCULAR HEMOGLOBIN 33 pg (27-31); MEAN CORPUSCULAR HGB CONC 37 g/dl (33.0-37.0); MEAN PLATELET VOLUME 9.5 fl (7.4-10.4); PLATELET COUNT 107 K/mm3 (130-400); RED BLOOD COUNT 3.72 M/mm3 (4.20-5.60); REDCELL DISTRIBUTION WIDTH-CV 12.4 % (11.5-14.5)
[2023-10-17 04:48] LABS: HEMATOCRIT 33.3 % (42.0-52.0)
[2023-10-17 04:57] LABS: CALCIUM 8.3 mg/dL (8.4-10.2); CREATININE, serum 0.81 mg/dL (0.72-1.25); MAGNESIUM 1.8 mg/dL (1.6-2.6); POTASSIUM 4.1 mmol/L (3.5-4.5)
[2023-10-17 06:12] LABS: BAND 32 % (0-10); LYMPHOCYTE 18 % (20.0-51.0); NEUTROPHILS 36 % (42.0-75.2)
[2023-10-17 06:13] LABS: PLATELET ESTIMATE NORMAL (NORMAL)
--- NOTE | 2023-10-17 06:30 | NUR ---
Pt had a uneventful night. Pt's vitals were stable throughout the night and pt was off levophed since yesterday (10/17) at 1600. Pt is A&OX4. Pt had three episodes of diarrhea. Pt has LR running at this time. Pt is currently sitting on the egde of the bed with the call light within reach. Will give report to day shift nurse.
--- NOTE | 2023-10-17 11:09 | NUR ---
PT evals patient and states home for discharge planning. Pt will transfer to medical floor when there is space.
--- NOTE | 2023-10-17 15:31 | NUR ---
Patient appears not in distress, is on room air, afebrile, blood pressure stable in systolic 100s at this time. He is alert, oriented and able to follow commands without confusion. He is able to order his meals, uses the urinal without assistance, and answers questions/conversation appropriately. He does have compliants of diarrhea since testing positive for COVID>
[2023-10-17] MEDS ORDERED: Remdesivir 100 MG in NS 100 ML IV SCH (16:00)
--- NOTE | 2023-10-17 19:52 | NUR ---
PER REPORT PT IS STABLE. PROGRAF LEVEL PENDING. DO NOT GIVE MYFORTIC.
[2023-10-18] VITALS: BP 151/91; PULSE 61; TEMP 98.7
[2023-10-18 03:45] VITALS: O2SAT 98
[2023-10-18 04:00] VITALS: BP 125/68; PULSE 56; TEMP 97.9
[2023-10-18 04:52] LABS: HEMOGLOBIN 12.6 g/dl (13.5-18.0); MEAN CELL VOLUME 91 fl (80.0-100.0); MEAN CORPUSCULAR HEMOGLOBIN 33 pg (27-31); MEAN CORPUSCULAR HGB CONC 36 g/dl (33.0-37.0); PLATELET COUNT 119 K/mm3 (130-400); RED BLOOD COUNT 3.85 M/mm3 (4.20-5.60); REDCELL DISTRIBUTION WIDTH-CV 12.5 % (11.5-14.5)
[2023-10-18 04:59] LABS: HEMATOCRIT 34.9 % (42.0-52.0)
--- NOTE | 2023-10-18 05:09 | NUR ---
PT STATES HE RESTED WELL OVERNIGHT. WBC 1.9, TRENDING UP. NOT CALLED CRITICAL VALUE VALUE IS EXPECTED. RESPIRATIONS EVEN AND UNLABORED. PT ON ROOM AIR. NO SIGN OF DISTRESS AT THIS TIME.
[2023-10-18 05:11] LABS: ALBUMIN 2.8 gm/dL (3.4-4.8); ALKALINE PHOSPHATASE 38 U/L (40-150); ANION GAP 8 mmol/L (7-16); AST,SGOT 10 U/L (5-34); BILIRUBIN,TOTAL 0.3 mg/dL (0.2-1.2); BLOOD UREA NITROGEN 17 mg/dL (8-26); CALCIUM 8.5 mg/dL (8.4-10.2); CARBON DIOXIDE 22 mmol/L (23-31); CHLORIDE 106 mmol/L (98-107); CREATININE, serum 0.91 mg/dL (0.72-1.25); GLUCOSE 116 mg/dL (70-99); MAGNESIUM 1.5 mg/dL (1.6-2.6); POTASSIUM 4.1 mmol/L (3.5-4.5); SODIUM 136 mmol/L (136-145); TOTAL PROTEIN 5.7 gm/dL (6.2-8.1)
[2023-10-18 05:34] LABS: BAND 1 % (0-10); LYMPHOCYTE 20 % (20.0-51.0); NEUTROPHILS 63 % (42.0-75.2); PLATELET ESTIMATE DECREASED (NORMAL)
[2023-10-18 05:42] LABS: ALANINE AMINOTRANSFERASE < 6 U/L (0-55)
[2023-10-18 08:00] VITALS: BP 128/84; PULSE 59; TEMP 98.7
--- NOTE | 2023-10-18 10:24 | NUR ---
PATIENT RESTING COMFORTABLY IN THE BED. HE IS ALERT AND ORIENTED, NO COMPLAINTS OF PAIN. URINIAL AT THE BEDSIDE. PICC LINE IN PLACE WITH NO FLUIDS INFUSING.
[2023-10-18 12:00] VITALS: BP 139/87; PULSE 73
[2023-10-18] MEDS ORDERED: Magnesium Sulfate 2 GM/50 ML IV SOLN IV ONE (12:00)
[2023-10-18] MEDS ORDERED: MONODOX100 PO (13:17)
[2023-10-18] MEDS ORDERED: DECADRON 4MG TAB4 MG PO (13:18)
--- NOTE | 2023-10-18 14:07 | NUR ---
support worker was informed patient is discharging home today. Pt is in isolation so SW completed IM from [employer] over the phone. Pt provided verbal consent. SW placed copy in discharge folder and original in chart. Discharge Plan: Home
--- NOTE | 2023-10-18 16:22 | NUR ---
REVIEWED ALL DISCHARGE PAPERWORK. HE UNDERSTANDS ALL INSTRUCTIONS AND NEW MEDICATIONS. HE HAD ALL BELONGINGS WITH HIM. HE IS IN NO DISTRESS AND WHEELED OUT IN A WHEELCHAIR.
[2023-10-18] MEDS ORDERED: Doxycycline Monohydrate 100 MG CAP PO SCH (21:00)
== END 2023-10-18 16:15 | disposition home or self-care (01) | DRG 178 ==
LOC: COL.ER 13:06 → ICU 19:29
PROVIDERS: Physician Assistant; ADMIT Internal Medicine
DX: U07.1 COVID-19 (principal); N17.9 Acute kidney failure, unspecified; Z94.0 Kidney transplant status; N18.9 Chronic kidney disease, unspecified; E87.6 Hypokalemia; I10 Essential (primary) hypertension; I95.9 Hypotension, unspecified
CPT/HCPCS: C1751; J0248; J1644; J2405; J3475; J7030; J7050; J7060; J7120; J7507; J7518; J8540; Q9967